=== PATIENT | male | born 1965 | race Hispanic/Latino ===

== ENCOUNTER 2017-02-20 21:07 | Emergency (ER) | payer OTHER ==
[~2017-02-20] VITALS: Ht 167.6 cm; Wt 88.6 kg
[2017-02-20 21:10] VITALS: BP 129/79; PULSE 69; RESP 18; O2SAT 98
--- NOTE | 2017-02-20 21:16 | ED.REPORT ---
HPI-Stroke / CVA Feb 20, 2017 ED Provider: Kunal Johnson MD A 51 year old male presents to the ED complaining of left sided facial droop onset 3 days ago. The patient reports a headache onset 1 week ago that is still present, mild dysarthria, left eye pain, and difficulty with mastication. The patient denies aphasia and denies any problems with his left arm or leg. The patient's is unsure if his left eye stays open when he sleeps. The patient's daughter is interpreting in Macedonian for the patient. Nursing Notes Stated Complaint: POSSIBLE STROKE Chief Complaint: Neuro Symptoms/ Deficits Nursing Notes Reviewed: Yes Allergies: Coded Allergies: oxycodone (Verified Allergy, Unknown, HTN, 02/20/17) Scheduled Cephalexin (Cephalexin) 500 Mg Capsule 500 MG PO TID Prednisone (PredniSONE) 20 Mg Tablet 20 MG PO TID Valacyclovir (Valacyclovir) 1,000 Mg Tablet 1,000 MG PO TID General Time Seen by Provider: 21:14 Chief Complaint Vision, reduced Hx Obtained From: Patient, Spouse Time last known well 3 days ago. Sudden in Onset?: No Symptom Duration: Since onset Progression Since Onset: Constant Recent Healthcare: No recent doctor visit Similar Sx Previous: No Risk Factors )( TPA Administration/Criteria Stroke Thrombolytic Therapy : TPA Considered: Yes TPA Administered Intravenously: No, exclusion criteria (Stroke is not suspected. ) NIH Stroke Scale Level of Consciousness: Alert and responsive (0) Ask Month & Age: Both questions right (0) Open/Close Eyes/Hand Qa Analyst: Performs both tasks (0) Visual Fuller: No visual loss (0) Facial Palsy: Unil complete, up&low (3) Left Arm Motor Drift (10s): No drift 10 sec (0) Right Leg Motor Drift (5s): No drift 5 sec (0) Limb Ataxia FNF/Heel-Alegria: No ataxia (0) Sensation (Arms/Legs/Face): No sensory loss (0) Language Aphasia: No aphasia, normal (0) Dysarthria: Slurring intelligible (1) Extinction/Inattention: No exctinct/inattent (0) NIHSS Score: 4 Time NIHSS Performed: 21:34 Date NIHSS Performed: Feb 20, 2017 Past Medical History Past Medical History none reported. Past Surgical History bilateral ankle surgery. Social History Other Social History: Good social support Ambulatory Status Independent Review of Systems Review of Systems Note: Left facial droop. Difficulty with mastication. Reports dysarthria. Denies aphasia. Denies any problems with left arm or left leg. Eyes: Reports: Eye pain left Neurologic: Reports: Headache Complete sys rev & neg: except as marked. Physical Exam Initial Vital Signs Vital Signs (First) Date Time Temp Pulse Resp B/P Pulse Ox O2 Delivery O2 Flow Rate FiO2 02/20/17 21:10 36.8 69 18 129/79 98 Room Air Initial VS: Reviewed, Vital signs normal General/Constitutional: Awake, Alert Head / Eyes: Normocephalic Neck: Atraumatic, Full range of motion Respiratory / Chest: Breath sounds NL, Breath sounds = bilat, No respiratory distress, No rales, No rhonchi, No wheezing Cardiovascular: Heart rate NL, Regular rhythm, Heart sounds NL, No gallop, No murmurs patient has weakness to eye closure on the left. No left frontal frontalis movement. Abdomen: No guarding, No rebound Upper Extremity / MS: No swelling, No edema Lower Extremity / Pelvis / MS: No swelling, No edema Skin: Warm, Dry Interpretation & Diagnostics Lab Results Interpretation Result Diagram: 02/20/17 2225 02/20/17 2225 Test 02/20/17 22:25 02/20/17 22:30 White Blood Count 4.6th/mm3 (3.8-10.1) Red Blood Count 4.57mil/mm3 (4.40-5.80) Hemoglobin 13.5g/dL (13.8-17.2) Hematocrit 38.9% (41.0-50.0) Mean Corpuscular Volume 85.1fL (81-100) Mean Corpuscular Hemoglobin 29.5pg (27.0-35.0) Mean Corpuscular Hemoglobin Concent 34.7% (32.0-37.0) Red Cell Distribution Width 13.8% (12.3-15.4) Platelet Count 167bil/L (150-400) Neutrophils (%) (Auto) 58.7% (40-74) Lymphocytes (%) (Auto) 29.5% (14-46) Monocytes (%) (Auto) 8.2% (4-12) Eosinophils (%) (Auto) 3.0% (0-5) Basophils (%) (Auto) 0.4% (0-3) Prothrombin Time 10.6sec (8.1-12.5) Prothromb Time International Ratio 0.99ratio Activated Partial Thromboplast Time 29.8sec (22.8-33.0) Sodium Level 135mEq/L (134-144) Potassium Level 3.7mEq/L (3.5-5.2) Chloride Level 100mEq/L (97-108) Carbon Dioxide Level 20mmol/L (18-29) Blood Urea Nitrogen 20mg/dL (6-24) Creatinine 0.66mg/dL (0.76-1.27) Estimat Glomerular Filtration Rate 135mL/min (>59) Glucose Level 110mg/dL (60-99) Calcium Level 9.6mg/dL (8.5-10.1) Total Bilirubin 0.6mg/dL (0.0-1.2) Aspartate Amino Transf (AST/SGOT) 38U/L (0-50) Alanine Aminotransferase (ALT/SGPT) 55U/L (0-44) Alkaline Phosphatase 87U/L (25-150) Troponin T < 0.010ug/L (0.0-0.011) Total Protein 8.7g/dL (6.4-8.4) Albumin 4.3g/dL (3.4-5.0) Hold Fernando Top Tube Received (Received) Urine Color Yellow (YELLOW) Urine Appearance Hazy (CLEAR,HAZY) Urine pH 6.0 (5.0-8.0) Urine Specific [place] 1.025 (1.003-1.035) Urine Protein Negativemg/dL (NEG,TRACE) Urine Glucose (UA) Negativemg/dL (NEGATIVE) Urine Ketones Negativemg/dL (NEGATIVE) Urine Occult Blood Trace (NEGATIVE) Urine Nitrite Negative (NEGATIVE) Urine Bilirubin Negative (NEGATIVE) Urine Urobilinogen Normalmg/dL (NORMAL) Urine Leukocyte Esterase Trace (NEGATIVE) Urine RBC 3-10/hpf (0-2) Urine WBC 11-50/hpf (0-5) Urine Epithelial Cells Occasional/hpf (NONE-MOD) Urine Crystals None seen (NONE SEEN) Urine Bacteria Few/hpf (NONE-FEW) Urine Hyaline Casts None/lpf (NONE) Urine Granular Casts None seen (NONE SEEN) Urine Waxy Casts None seen (NONE SEEN) Urine Red Blood Cell Casts None seen (NONE SEEN) Urine White Blood Cell Casts None seen (NONE SEEN) Urine Mucus None seen (None Seen) Urine Trichomonas None seen (NONE SEEN) Urine Yeast None (NONE SEEN) Urinalysis Comment None Urine Culture Reflexed Indicated Lab values outside NL range: no clinical significance. ECG Interpretation ECG Interpretation: Rate is 65. Sinus rhythm. ST elevation, early repol pattern. Time: 21:43 CT Head Interpretation IMPRESSION: No ischemic injury identified. No mass lesion or hemorrhage found. Please note that MR scanning is more accurate for detection of early stroke. Currently this study appears normal for age. Dictated by: Mir Chan M.D. on 02/20/2017 at 21:39 Approved by: Mir Chan M.D. on 02/20/2017 at 21:40 Study: Head CT no contrast Interpretation / Wet Read by: Interpret - Radiologist Re-Eval/Medical Decision Med Decision/Clinical Course 51-year-old male who had onset of left facial drooping about 3 days ago. He has left facial droop involving the forehead. He does not close his eye completely with a relaxed closure in the lying position and there is a small amount of conjunctival injection. He has some left facial drooping and cannot tightly close the left side of his mouth. I movements, tongue movements , and speech are essentially normal. Arm and leg strength are normal. CT scan of his head shows no evidence of acute CVA. His symptoms are most consistent with left-sided Dela Cruz's palsy. He was placed on valacyclovir and prednisone. He also has a UTI and was given medication for that. Source of Hx: Old records Re-Evaluation/Progress #1: Time of Eval: 21:34 Re-Evaluation/Progress Note: Rechecked patient and explained physical exam. Re-Evaluation/Progress #2: Time of Eval: 23:04 Re-Evaluation/Progress Note: Rechecked patient and explained possible diagnosis of Dela Cruz's Palsy. Explained that it will take several months for the patient to recover. Re-Evaluation/Progress #3: Time of Eval: 23:13 Re-Evaluation/Progress Note: Rechecked patient and explained plan for discharge and the plan to give them antibiotics before discharge. Patient understands and agrees with the plan. At recheck, patient reports that they have increased urine frequency, but no other urine problems. Re-Evaluation/Progress #4: Time of Eval: 00:00 Re-Evaluation/Progress Note: Rechecked patient and explained that they were almost ready for discharge. Counseled Regarding: Diagnosis, Lab results, Need for follow-up, When/why to return to ED Patient Discharge & Departure Impression: Primary Impression: Left-sided Dela Cruz's palsy Additional Impression: Urinary tract infection Urinary tract infection type: acute cystitis Hematuria presence: with hematuria Qualified Code: N30.01 - Acute cystitis with hematuria Disposition: Home Discharge Condition All VS Reviewed: Yes Condition: Improved Patient Instructions: Dela Cruz's Palsy (ED), Urinary Tract Infection in Men (ED) Additional Instructions: The facial drooping is from a viral infection of the left facial nerve, called Dela Cruz's palsy. It does not appear that you have had a stroke. Please see the attached instructions concerning Dela Cruz's palsy. Valtrex (valacyclovir) 1000 mg 3 times a day for 7 days, prescription written. Prednisone 60 mg daily for 5 days then 40 mg for 2 days, 20 mg for 2 days, then stop. Apply Lacri-Lube moisturizing ointment to the eye at bedtime and then tape the eye lightly shot for the night. Cephalexin 500 mg 3 times a day for 7 days, #21 prescribed for urinary tract infection. Follow-up with your regular doctor in a week or so for recheck. Shayy Attestation Portions of this note were transcribed by Edwar Soares. I, Dr. Johnson personally performed the history, physical exam and medical decision-making; I reviewed and confirmed the accuracy of the information in the transcribed note. Signed by: Shayy Shaw, 02/20/2017, 2351. copies to: Kunal Givens MD Feb 20, 2017 21:16 Edwar Soares Feb 20, 2017 21:18
--- NOTE | 2017-02-20 21:41 | DRSVH ---
PROCEDURE: CT BRAIN WITHOUT CONTRAST ([id number]) INDICATIONS: Stroke TECHNIQUE: Noncontrast 4.5 mm thick angled axial sections acquired from the foramen magnum to the vertex, with c oronal reformats. COMPARISON: None. FINDINGS: Image quality: Excellent. CSF spaces: Basal cisterns are patent. No extra-axial fluid collections. Ventricles are normal in size and shape. Brain: No midline shift. No intracranial masses or hemorrhage. Macario-white matter interface is norm al. Skull and face: Calvarium and visualized facial bones are intact, without suspicious lesions. Sinuses: Visualized sinuses and mastoids are clear. IMPRESSION: No ischemic injury identified. No mass lesion or hemorrhage found. Please note that MR scanning is more accurate for detection of early stroke. Currently this study appears normal for ag e. Dictated by: Mir Chan M.D. on 02/20/2017 at 21:39 Approved by: Mir Chan M.D. on 02/20/2017 at 21:40
[2017-02-20 22:32] LABS: BASOPHILS % (AUTO) 0.4 % (0-3); MONOCYTES % (AUTO) 8.2 % (4-12); Mean Corpuscular Hemoglobin 29.5 pg (27.0-35.0); Mean Corpuscular Volume 85.1 fL (81-100); NEUTROPHILS % (AUTO) 58.7 % (40-74); Platelet Count 167 bil/L (150-400)
[2017-02-20 22:45] LABS: APPEARANCE,URINE HAZY (CLEAR,HAZY); COLOR,URINE YELLOW (YELLOW); OCCULT BLOOD,URINE TRACE (NEGATIVE); UROBILINOGEN,URINE NORMAL (NORMAL)
[2017-02-20 22:55] LABS: INR 0.99 ratio
[2017-02-20 23:07] LABS: TROPONIN T < 0.010 ug/L (0.0-0.011)
[2017-02-20] MEDS ORDERED: predniSONE 20 mg Tablet PO ONE (23:10)
[2017-02-20] MEDS ORDERED: LacriLube S.O.P. 3.5 Gm Ophthalmic Ointment LEFT_EYE ONE (23:10)
[2017-02-20] MEDS ORDERED: cefTRIAXone Inj 2,000 MG in Dextrose 5% Minibag Plus 50 ML IV ONE (23:15)
[2017-02-20] MEDS ORDERED: VALA100026 PO (23:47)
[2017-02-20] MEDS ORDERED: PRE20 PO (23:47)
[2017-02-20] MEDS ORDERED: CEPH500C PO (23:47)
[2017-02-21 00:39] VITALS: BP 119/73; PULSE 78; RESP 16; O2SAT 98
== END 2017-02-21 00:43 | disposition home or self-care (01) ==
LOC: SED 21:07
DX: G51.0 Bell's palsy (principal); N30.01 Acute cystitis with hematuria; R51 Headache; R47.1 Dysarthria and anarthria; H57.12 Ocular pain, left eye; Z88.5 Allergy status to narcotic agent
CPT/HCPCS: 36415; 70450; 80053; 81000; 82948; 84484; 85025; 85610; 85730; 87086; 93005; 96365; 99285; J0696